=== PATIENT | male | born 1990 | race Caucasian/White ===

== ENCOUNTER 2021-11-10 04:08 | Inpatient (IN) | payer MEDICAID, SELFPAY ==
--- NOTE | ~2021-11-10 | XR_ITS ---
EXAMINATION: XR CHEST CLINICAL INFORMATION: Hypoxia. Overdose. COMPARISON: None TECHNIQUE: Frontal view of the chest was obtained. FINDINGS: The lungs are well expanded. No edema or effusion. Patchy opacity at the left base. No pneumothorax. The cardiomediastinal silhouette is within normal limits. No acute osseous abnormality. XR/XR chest 1V IMPRESSION: Patchy left basilar opacity is nonspecific. This could be atelectasis or pneumonia. Aspiration possible.
--- NOTE | ~2021-11-10 | CT_ITS ---
EXAMINATION: CT CHEST WITHOUT CONTRAST CLINICAL INFORMATION: Hypoxia. Overdose. COMPARISON: Previous chest x-ray from earlier the same day TECHNIQUE: Multidetector volumetric CT imaging of the chest was done. Axial MIP volume rendering provided. Sagittal and coronal reformatted images were obtained. This CT examination was performed using dose optimization techniques as appropriate, variously including the following: *Automated exposure control *Adjustment of mA and/or kV according to patient size (this includes techniques or standardized protocols for targeted exams where dose is matched to indication/reason for exam; i.e. extremities or head) *Use of iterative reconstruction technique DLP: 253 mGy-cm FINDINGS: LUNGS: There is pneumonitis seen in the left upper lobe. There is pneumonitis and denser airspace disease with air bronchograms seen in the left lower lobe. There is patchy groundglass attenuation seen in the right middle lobe. There is atelectasis and groundglass attenuation in the right lower lobe. Given history of overdose, aspiration pneumonia should be considered. The lungs are otherwise clear. No endobronchial or endotracheal lesion is seen. MEDIASTINUM: The mediastinum is normal. PLEURA: There is no pleural effusion. No pleural mass or thickening. AXILLA: No lymphadenopathy. UPPER ABDOMEN: Unremarkable. OSSEOUS STRUCTURES: Unremarkable. CT/CT chest wo con IMPRESSION: Bilateral groundglass attenuation and denser airspace disease or consolidation suggestive of pneumonitis and pneumonia, left greater than right. Given history of overdose, aspiration should be considered. Fleischner guidelines were followed.
[2021-11-10 04:16] VITALS: BP 113/82; PULSE 95; RESP 16; TEMP 37.2; O2SAT 95; BMI 25.8
--- NOTE | 2021-11-10 04:23 | ED_ITS ---
HPI - Overdose General Chief Complaint: Overdose Stated Complaint: OD Time Seen by Provider: 11/10/21 04:23 Source: patient Mode of arrival: ambulatory Limitations: no limitations History of Present Illness HPI Narrative: Recurrent patient never used any substance in the past today had few drinks and how bag of heroin snorted became unconscious for about 15 minutes EMS gave him 6 mg of Narcan became combative initially sleepy but responsive on arrival patient was saturating 95% at room air patient denied use of any other substance Related Data Allergies Allergy/AdvReac Type Severity Reaction Status Date / Time No Known Allergies Allergy Unverified 08/08/20 19:49 [No Known Allergies*] Review of Systems Review of Systems: Yes all other systems are reviewed and are negative [facility] Social History Social History Advance Directives: No Advance Directives Information Provided: No Physical Exam Vital Signs: Vital Signs: Last Vital Signs Temp 98.9 F 11/10/21 04:16 Pulse 85 11/10/21 05:44 Resp 17 11/10/21 05:44 BP 113/82 11/10/21 04:16 Pulse Ox 95 11/10/21 05:44 BMI result Body Mass Index 25.8 Appearance: Alert. Oriented X3. No acute distress. Eyes: PERRLA, ENT: Pharynx normal. Oral Mucosa moist Neck: Normal inspection. Neck supple. CVS: Normal heart rate and rhythm. Pulses normal. Respiratory: No respiratory distress. Equal air entry bilateral, no wheezing/rales/rhonchi Abdomen: Soft and nontender. Skin: Skin warm and dry. Normal skin color. Normal skin turgor. Extremities: No lower extremity edema. No calf tenderness Neuro: Oriented X 3. No motor deficit. MDM - Overdose MDM Narrative Medical decision making narrative: Patient with overdose was given Narcan lungs are clear but patient still saturating 89% at room air after 2 hours of reversal pulse ox increased to 94% when he is awake. Will check chest x-ray and COVID-19 Discharge Plan Discharge Clinical Impression: Drug overdose Qualifiers: Encounter type: initial encounter Injury intent: accidental or unintentional Qualified Code(s): T50.901A - Poisoning by unspecified drugs, medicaments and biological substances, accidental (unintentional), initial encounter Patient Disposition: Home, Self-Care Instructions: Opioid Use Disorder (ED) Additional Instructions: Do not use opiates or other drugs follow with detox if any concerns
[2021-11-10 05:44] VITALS: PULSE 85; RESP 17; O2SAT 95
[2021-11-10 07:38] VITALS: BP 117/76; PULSE 91; RESP 16; TEMP 36.7; O2SAT 98
[2021-11-10 07:56] LABS: COVID-19 Test Negative (Negative); IDNOW Serial# 9DD0AD1C
[2021-11-10 08:26] LABS: MANUAL DIFF FLAG NO
[2021-11-10 08:27] LABS: Basophils Percent Auto 0.1 % (0-2); Eosinophils Percent Auto 0.1 % (0-4); Hematocrit 46.2 % (42.0-52.0); Hemoglobin 15.8 g/dl (14.0-18.0); Imm Gran Abs Auto 0.08 X10*3/uL (0.00-0.03); Imm Gran Pct Auto 0.5 % (0.0-0.4); Lymphocytes Percent Auto 5.9 % (20-40); Mean Corpuscular HGB Conc 34.2 g/dl (31.0-36.0); Mean Corpuscular Hemoglobin 31.3 pg (27.0-33.0); Mean Corpuscular Volume 91.5 fL (80.0-98.0); Mean Platelet Volume 9.3 fL (9.4-12.4); Monocytes Absolute Auto 0.6 X10*3/uL (0.1-1.2); Monocytes Percent Auto 3.7 % (2-11); Neutrophils Absolute Auto 15.2 x10*3/uL (2.0-8.3); Neutrophils Percent Auto 89.7 % (45-73); Platelet Count 208 X10*3/uL (160-400); Red Blood Count 5.05 X10*6/uL (4.60-5.80); Red Cell Distribution Width 12.7 % (11.0-16.0); White Blood Count 16.9 X10*3/uL (4.8-10.8)
[2021-11-10 08:39] LABS: Lactic Acid 1.8 mmol/L (0.5-2.0)
[2021-11-10 08:46] LABS: Anion Gap 15 (12-20); Blood Urea Nitrogen 11 mg/dL (9-16); Calcium 9.2 mg/dL (8.4-10.2); Carbon Dioxide 26 mmol/L (22-29); Chloride 105 mmol/L (96-108); Creatinine Clr Calc Pharmacy 105.2; Estimated Glomerular Filt Rate > 60; Glucose Random 105 mg/dL (60-115); Potassium 4.5 mmol/L (3.3-5.1); Sodium 141 mmol/L (135-145)
[2021-11-10] MEDS: Piperacillin Sodium/Tazobactam 3.375 GM in 0.9 % Sodium Chloride 50 ML IV ×3 (08:51→21:20)
[2021-11-10 10:45] VITALS: BP 119/73; PULSE 96; RESP 18; TEMP 36.7; O2SAT 97
[2021-11-10] MEDS: Enoxaparin Sodium 40 MG/0.4 ML SYRINGE SUBCUT (12:32)
--- NOTE | 2021-11-10 12:48 | P.HPHOSP_ITS ---
History of Present Illness Date of Service: 11/10/21 Chief Complaint: aspiration pneumonia 30-year-old male admitted after what he describes an accidental overdose. States he was snorting cocaine and grabbed the wrong back and ended up snorting heroin. Per EMS down time was about 10 minutes and given 6 of Narcan in the field. Upon arrival to ER sats are stable on 2 L however deteriorated as the morning went on. CT scan of the chest demonstrates bilateral ground-glass attenuation and dense airspace consolidation suggestive of pneumonitis and pneumonia left greater than right. He will be admitted for supplemental O2, IV antibiotics, steroids Review of Systems Review of Systems: denies chest pain Denies shortness of breath Denies nausea vomiting diarrhea PMFSH Social History Advance Directives: No Advance Directives Information Provided: No Meds Allergies Allergy/AdvReac Type Severity Reaction Status Date / Time No Known Allergies Allergy Unverified 08/08/20 19:49 [No Known Allergies*] Active Medications: Current Medications Acetaminophen (Acetaminophen 325 Mg Tablet) 650 mg PO Q6H PRN PRN Reason: Pain, Mild (Pain Scale 1-3) Enoxaparin Sodium (Enoxaparin Sodium 40 Mg/0.4 Ml Syringe) 40 mg SUBCUT Q24H MEÑO Last Admin: 11/10/21 12:32 Dose: 40 mg Documented by: Sodium Chloride (0.9 % Sodium Chloride Flush 3 Ml Syringe) 3 ml IVFLUSH QSHIFT [facility] Physical Exam Vital Signs and Narrative: Vital Signs: Last Vital Signs Temp 98.1 F 11/10/21 10:45 Pulse 96 11/10/21 10:45 Resp 18 11/10/21 10:45 BP 119/73 11/10/21 10:45 Pulse Ox 97 11/10/21 10:45 BMI result Body Mass Index 25.8 Const: Other: resting comfortably in bed. Able to speak in full sentences Resp: Other: scattered crackles bilateral bases; diffuse expiratory wheezes all horn Cardio: Other: no S4; positive S1-S2; no S3 murmurs rubs or gallops GI: Other: soft nontender nondistended with normoactive bowel sounds Neuro: Other: cranial nerves 2-12 grossly intact as tested. Motor is 5/5 all extremities. Sensation intact. Cognition appropriate Extrem: Other: no edema bilaterally Results Labs CBC and Chem 7: 11/10/21 08:22 11/10/21 08:22 Labs: Laboratory Results - last 24 hr 11/10/21 11/10/21 11/10/21 07:37 08:22 08:22 MCV 91.5 MCH 31.3 MCHC 34.2 RDW 12.7 Plt Count 208 MPV 9.3 L Immature Gran % (Auto) 0.5 H Neut % (Auto) 89.7 H Lymph % (Auto) 5.9 L [place] % (Auto) 3.7 Eos % (Auto) 0.1 Baso % (Auto) 0.1 Lymph # (Auto) 1.0 L [place] # (Auto) 0.6 Eos # (Auto) 0.0 Baso # (Auto) 0.0 Abs Immat Gran (auto) 0.08 H Absolute Neuts (auto) 15.2 H Absolute Nucleated RBC 0.000 Nucleated RBC % (auto) 0.0 Anion Gap 15 Estim Creat Clear Calc 105.2 Estimated GFR > 60 Random Glucose 105 Lactic Acid Calcium 9.2 COVID-19 (RADHA) Negative COVID-19 Clin Com See Note 11/10/21 08:22 MCV MCH MCHC RDW Plt Count MPV Immature Gran % (Auto) Neut % (Auto) Lymph % (Auto) [place] % (Auto) Eos % (Auto) Baso % (Auto) Lymph # (Auto) [place] # (Auto) Eos # (Auto) Baso # (Auto) Abs Immat Gran (auto) Absolute Neuts (auto) Absolute Nucleated RBC Nucleated RBC % (auto) Anion Gap Estim Creat Clear Calc Estimated GFR Random Glucose Lactic Acid 1.8 Calcium COVID-19 (RADHA) COVID-19 Clin Com Imaging Radiologist's Impressions: Impressions Chest X-Ray 11/10/21 06:45 IMPRESSION: Patchy left basilar opacity is nonspecific. This could be atelectasis or pneumonia. Aspiration possible. Chest CT 11/10/21 10:13 IMPRESSION: Bilateral groundglass attenuation and denser airspace disease or consolidation suggestive of pneumonitis and pneumonia, left greater than right. Given history of overdose, aspiration should be considered. Fleischner guidelines were followed. Assessment and Plan (1) Aspiration pneumonia: Qualifiers: Aspiration pneumonia type: unspecified Laterality: bilateral Lung location: lower lobe of lung Qualified Code(s): J69.0 - Pneumonitis due to inhalation of food and vomit Status: Acute (2) Drug overdose: Qualifiers: Encounter type: initial encounter Injury intent: accidental or unintentional Qualified Code(s): T50.901A - Poisoning by unspecified drugs, medicaments and biological substances, accidental (unintentional), initial encounter Status: Acute 30-year-old male presents after accidental nasal ingestion of hair whe n. Down time approximately 10 minutes given Narcan in the field. ER workup including CT scan suggestive of diffuse aspiration pneumonia with pneumonitis 1. Aspiration pneumonia ( with pneumonitis) Continue IV Zosyn as ordered; will add pulse dose steroids Titrate O2 as tolerated 2. Substance abuse Care team consult Manjinder Full code Quality Stroke Does the patient have a stroke diagnosis?: No VTE Prior VTE?: No VTE Risk Level:: Medical - moderate - high VTE Device Contraindication: Treatment Not Indicated VTE Drug Contraindication: N/A - Med Ordered
--- NOTE | 2021-11-10 13:45 | HO.SUDE ---
30 year old male admitted for pneumonitis after an accidental overdose. Pt reports using cocaine on the weekends, $20 IN, as well as alcohol (4-5 shots). Pt reports someone had heroin next to the cocaine and pt accidentally did 2 lines. Pt reports this was the first and last time. Pt denies history of CORRIE. Pt identifies as using substances socially and states I don't have any problems. Pt currently lives in [place] with girlfriend and partner's children. Pt declines any recovery supports at this time. Provided t/w contact information if needed.
[2021-11-10] MEDS: methylPREDNISolone Sod Succ 125 MG/2 ML VIAL 60 MG IVPUSH ×2 (14:29→19:59)
--- NOTE | 2021-11-10 15:02 | PC.NURSE ---
Pt A&Ox3, lungs with crackles in the bases, ambulatory independently. No complaints of pain at this time, Medicated as per MAR orders. Call mcmahon within reach, pitcher of water provided, awaiting bed assignment. Will continue to monitor.
[2021-11-10 15:35] VITALS: BP 108/70; PULSE 91; RESP 20; TEMP 36.3; O2SAT 97
--- NOTE | 2021-11-10 18:23 | PC.NURSE ---
Pt ambulatory independently, no complaints of pain at this time, 100% of dinner eaten. Awaiting bed assignment, will continue to monitor.
[2021-11-11] MEDS: 0.9 % Sodium Chloride Flush 3 ML SYRINGE IVFLUSH ×2 (00:45→09:13)
[2021-11-11] MEDS: Acetaminophen 325 MG TABLET 650 MG PO (01:37)
[2021-11-11] MEDS: Melatonin 3 MG TABLET 6 MG PO (01:38)
[2021-11-11] MEDS: methylPREDNISolone Sod Succ 125 MG/2 ML VIAL 60 MG IVPUSH ×2 (01:38→07:53)
[2021-11-11] MEDS: Piperacillin Sodium/Tazobactam 3.375 GM in 0.9 % Sodium Chloride 50 ML IV ×2 (02:49→09:12)
[2021-11-11 07:38] LABS: Basophils Percent Auto 0.1 % (0-2); Hematocrit 42.1 % (42.0-52.0); Hemoglobin 14.8 g/dl (14.0-18.0); Imm Gran Abs Auto 0.13 X10*3/uL (0.00-0.03); Imm Gran Pct Auto 0.8 % (0.0-0.4); Lymphocytes Absolute Auto 1.2 X10*3/uL (1.2-4.9); MANUAL DIFF FLAG SCAN; Mean Corpuscular HGB Conc 35.2 g/dl (31.0-36.0); Mean Corpuscular Volume 91.1 fL (80.0-98.0); Mean Platelet Volume 9.9 fL (9.4-12.4); Monocytes Absolute Auto 0.1 X10*3/uL (0.1-1.2); Monocytes Percent Auto 0.7 % (2-11); Neutrophils Absolute Auto 15.4 x10*3/uL (2.0-8.3); Neutrophils Percent Auto 91.4 % (45-73); Platelet Count 221 X10*3/uL (160-400); Red Blood Count 4.62 X10*6/uL (4.60-5.80); Red Cell Distribution Width 12.7 % (11.0-16.0); SCAN SMEAR FLAG 1; White Blood Count 16.8 X10*3/uL (4.8-10.8)
--- NOTE | 2021-11-11 07:58 | PC.NURSE ---
Pt medicated as per JAN, no complaints of pain at this time, asking for DC status, aware MD will be rounding shortly.
[2021-11-11 08:00] LABS: Anion Gap 13 (12-20); Blood Urea Nitrogen 12 mg/dL (9-16); Calcium 9.6 mg/dL (8.4-10.2); Carbon Dioxide 27 mmol/L (22-29); Chloride 102 mmol/L (96-108); Estimated Glomerular Filt Rate > 60; Glucose Random 148 mg/dL (60-115); Potassium 4.7 mmol/L (3.3-5.1); Sodium 137 mmol/L (135-145)
[2021-11-11 08:10] LABS: SLIDE REVIEW VERIFIED
[2021-11-11 09:14] VITALS: O2SAT 96
--- NOTE | 2021-11-11 09:41 | PC.NURSE ---
Pt A&Ox3, asking when he will be Dc'd, Elizabeth Culp aware of O2 sat on room air, DC teaching with pt regarding necessity for antibiotics, steroids and activity to prevent worsening pneumonia, also discussed drug abuse. IV antibitocs given, awaiting DC orders at this time. Will continue to monitor.
--- NOTE | 2021-11-11 09:56 | PHA.MEDREC ---
Pharmacy Consult ? Medication Reconciliation Pharmacy has completed the medication reconciliation. No remarkable issues. Narcisa He, TiD
[2021-11-11 10:28] VITALS: PULSE 84; O2SAT 94
--- NOTE | 2021-11-11 10:59 | MHC.CM.PN ---
Met with patient in regards to discharge planning. Patient lives with his girlfriend, ambulates independently and had no services prior to coming to the hospital. Patient has no insurance or PCP. Referral made to financial counselor to help assist with [employer] application. No services anticipated to be needed. Patient denies having a HCP. Not interested in completing one at this time. Patient has not received any Covid vaccines. Patient's girlfriend will transport him home when medically stable. Continue to monitor for d/c needs.
--- NOTE | 2021-11-11 11:38 | PM.DS ---
DS: Providers Provider Date of Service: 11/11/21 Date of admission: 11/10/21 11:05 Date of discharge: 11/11/21 Primary care physician: Rubens Physician DS: Diagnosis Discharge Diagnosis (1) Aspiration pneumonia: Status: Acute (2) Drug overdose: Status: Acute DS: Summary Hospital Course Hospital Course: 30-year-old male admitted after what he describes an accidental overdose.? States he was snorting cocaine and grabbed the wrong back and ended up snorting heroin.? Per EMS down time was about 10 minutes and given 6 of Narcan in the field.? Upon arrival to ER sats are stable on 2 L however deteriorated as the morning went on.? CT scan of the chest demonstrates? bilateral ground-glass attenuation and dense airspace consolidation suggestive of pneumonitis and pneumonia left greater than right.? He will be admitted for supplemental O2, IV antibiotics, steroids Hospital Course Responded well to ABTX/steroid. Wishes D/C ...medically stable for same. Time Spent with Patient Time attestation: Total time spent providing and/or coordinating discharge services: Discharge coordination time: Greater than 30 minutes Quality: Stroke Does the patient have a stroke diagnosis?: No Physical Exam Vital Signs: Vital Signs: Last Vital Signs Temp 97.4 F 11/10/21 15:35 Pulse 84 11/11/21 10:28 Resp 20 11/10/21 15:35 BP 108/70 11/10/21 15:35 Pulse Ox 94 11/11/21 10:28 BMI result Body Mass Index 25.8 Const: Other: resting comfortably in bed. Able to speak in full sentences Resp: Other: scattered crackles bilateral bases; diffuse expiratory wheezes all horn Cardio: Other: no S4; positive S1-S2; no S3 murmurs rubs or gallops GI: Other: soft nontender nondistended with normoactive bowel sounds Neuro: Other: cranial nerves 2-12 grossly intact as tested. Motor is 5/5 all extremities. Sensation intact. Cognition appropriate Extrem: Other: no edema bilaterally DS: Data Data Completed and Pending Labs on day of discharge: Laboratory Results - last 24 hr 11/11/21 11/11/21 07:01 07:01 WBC 16.8 H RBC 4.62 Hgb 14.8 Hct 42.1 MCV 91.1 MCH 32.0 MCHC 35.2 RDW 12.7 Plt Count 221 MPV 9.9 Immature Gran % (Auto) 0.8 H Neut % (Auto) 91.4 H Lymph % (Auto) 7.0 L [place] % (Auto) 0.7 L Eos % (Auto) 0.0 Baso % (Auto) 0.1 Lymph # (Auto) 1.2 [place] # (Auto) 0.1 Eos # (Auto) 0.0 Baso # (Auto) 0.0 Abs Immat Gran (auto) 0.13 H Absolute Neuts (auto) 15.4 H Absolute Nucleated RBC 0.000 Nucleated RBC % (auto) 0.0 Smear Tech's Comments VERIFIED Sodium 137 Potassium 4.7 Chloride 102 Carbon Dioxide 27 Anion Gap 13 BUN 12 Creatinine 1.14 Estim Creat Clear Calc 96.0 Estimated GFR > 60 Random Glucose 148 H D Calcium 9.6 Preliminary micro results at discharge 11/10/21 08:22 Blood Culture - Preliminary Blood - Venous No growth after 24 hours. 11/10/21 08:22 Blood Culture - Preliminary Blood - Venous No growth after 24 hours. Discharge Plan Discharge Patient Disposition: Home, Self-Care Discharge Diagnosis: aspiration pneumonia Referrals: Physician,None [Primary Care Provider] - 1 Week Discharge Medications: New amoxicillin-pot clavulanate [Augmentin] 875-125 mg tablet 1 tab PO BID Qty: 20 RF: 0 Discontinued ibuprofen 200 mg Tablet 400 mg PO Q6H PRN (Reason: Headache) RF: 0 Discharge Orders: Discharge Order (Routine); Ordered 11/11/21 Ordered By: Natanael Johnson Diet: advance to usual diet Activity on Discharge: As tolerated Stand Alone Forms: Patient Portal Discharge page Activity Restrictions/Additional Instructions: Do not use opiates or other drugs follow with detox if any concerns Care Plan Goals: complete course of Augmentin Health Concerns: no further nasal opiates Plan of Treatment: as outlined Assessment: as above Patient Instructions: Opioid Use Disorder (ED)
--- NOTE | 2021-11-11 12:07 | MHC.CM.PN ---
pt lives c his mother in her apt. he reports that he is independent in his care. he has no svcs in the home and ambulates s any AD's. pt's mother can help him should he have any needs. he will have a friend provide transportation home at DC. pt denies the need for vna at dc. pt would benefit from a care team consult prior to dc. dc plan is home no svcs. cm to cont. to follow.
== END 2021-11-11 12:05 | disposition home or self-care (01) | DRG 816 ==
LOC: HO.ED 10:52 → HO.EDOVER 11:18
PROVIDERS: Emergency Medicine; Admitting Provider Hospitalist; Emergency Provider Internal Medicine; Visit Provider Hospitalist
DX: T40.1X1A Poisoning by heroin, accidental (unintentional), initial encounter (principal); J69.0 Pneumonitis due to inhalation of food and vomit; Y92.9 Unspecified place or not applicable; Z20.822 Contact with and (suspected) exposure to COVID-19
CPT/HCPCS: 36415; 71045; 71250; 80048; 83605; 85025; 87040; 87635; 96365; 99284; 99285; J1650; J2543; J2930

== ENCOUNTER → 2023-12-16 15:36 | Outpatient (BNVA) | payer SELFPAY | PROVIDERS: Visit Provider Physician Assistant | DX: Z02.1 Encounter for pre-employment examination (principal) ==

== ENCOUNTER 2024-04-01 14:24 | Emergency (ER) | payer OTHER, SELFPAY ==
[2024-04-01 15:01] VITALS: BP 120/66; PULSE 89; RESP 18; TEMP 36.7; O2SAT 97; BMI 26.7
--- NOTE | 2024-04-01 15:04 | ED.EYEPROB ---
HPI - Eye Problem General Chief complaint: Eye Problems Stated complaint: pink eye Time Seen by Provider: 04/01/24 15:02 Source: patient and family Mode of arrival: ambulatory Limitations: no limitations History of Present Illness HPI Narrative: 33-year-old male no significant past history presents to the emergency department, family, for concerns for bilateral eye pain and discharge in addition to nasal congestion. He reports a difficulty opening his eyes earlier this morning as they were crusted shut. He also reports nasal congestion but denies fevers, chills, shortness of breath Pertinent positives and negatives discussed in the HPI Related Data Previous Rx's ?Medication ?Instructions ?Recorded amoxicillin 875 mg-potassium 1 tab PO BID #20 tabs 11/11/21 clavulanate 125 mg tablet (Augmentin) erythromycin 5 mg/gram (0.5 %) eye 1 appl ophthalmic (eye) DAILY #3.5 04/01/24 ointment grams polymyxin B sulfate 10,000 1 drp ophthalmic (eye) 6XD 5 days 04/01/24 unit-trimethoprim 1 mg/mL eye drops #10 mL Allergies Allergy/AdvReac Type Severity Reaction Status Date / Time No Known Allergies Allergy Verified 04/01/24 15:01 [No Known Allergies*] Review of Systems Review of Systems: Yes all other systems are reviewed and are negative [facility] Social History Social History Do you have a plan to hurt others: No Plan service: No Current occupational status: unemployed Physical Exam Vital Signs: Vital Signs: Last Vital Signs Temp 98.0 F 04/01/24 15:01 Pulse 89 04/01/24 15:01 Resp 18 04/01/24 15:01 BP 120/66 04/01/24 15:01 Pulse Ox 97 04/01/24 15:01 O2 Del Method Room Air 04/01/24 15:01 BMI result Body Mass Index 26.7 Nursing notes and vital signs reviewed. GENERAL APPEARANCE: A&0 x 4, generally well appearing, no acute distress HENMT: Normal to inspection, atraumatic, face symmetrical. Normal external ears, nose, and oropharynx clear. EYE: PERRLA, EOM intact, bilat eyes injected NECK: Supple without stiffness or restricted ROM. HEART: Normal rate and regular rhythm, normal S1/S2, no M/R/G LUNGS: LS CTA, moving air well. Able to speak in complete sentences. No crackles, wheezes, or rhonchi auscultated BACK: No CVAT, no obvious deformity EXTREMITIES: Moving all extremities without difficulty. Normal capillary refill. NEUROLOGICAL: Alert and oriented, moving all 4 extremities with equal strength. CN not formally tested but appearing grossly intact. Observed to ambulate with normal gait. Cognition normal SKIN: Warm and dry without any lesions, rash, or visible sores Medical Decision Making Medical Decision Making MDM Narrative: Old records reviewed for previous imaging, lab studies, ECGs, and notes with additional HPI obtained from patient's partner. Patient was assessed the emergency department with no acute distress or toxicity noted. Bilateral eyes injected with evidence bacterial conjunctivitis and antibiotic eyedrops and ointment prescribed to patient's preferred pharmacy. Patient educated to use the ointment prior to going to bed and use the eye drops throughout the day. Patient educated to apply warm compresses for comfort. Nasal serology offered to test for COVID, flu, and RSV and declined. Patient is safe for discharge at this time with plan for [id number] Tylenol and/or NSAID such as ibuprofen or naproxen for fever/discomfort with dosing as per packaging. HPI, PE, diagnostics, and plan discussed with patient and family with no unanswered questions at this time. Strict return precautions given to return to the emergency department with new, worsening, or concerning emergent symptoms. Recommended to follow-up with there primary care provider in 24-48 hours for further treatment and management. Differential Diagnosis Differential Diagnoses: The differential diagnosis associated with the presentation includes But not limited to viral syndrome, allergic/viral/bacterial conjunctivitis, upper respiratory infection, pneumonia, sepsis Independent Historian Clinical information obtained from an independent historian. History obtained from or confirmed by: Spouse Discharge Plan Discharge Clinical Impression: Conjunctivitis Patient Disposition: Home, Self-Care Instructions: Conjunctivitis (ED) Prescriptions: New erythromycin 5 mg/gram (0.5 %) ointment 1 appl ophthalmic (eye) DAILY Qty: 3.5 0RF Rx Instructions: At bedtime for 7 days polymyxin B sulf-trimethoprim 10,000 unit- 1 mg/mL drops 1 drp ophthalmic (eye) 6XD 5 Days Qty: 10 0RF Rx Instructions: ON drop in each eye, every three hours, while awake for the next 7 days No Action amoxicillin-pot clavulanate [Augmentin] 875-125 mg tablet 1 tab PO BID Qty: 20 0RF Referrals: [facility] [place] [facility] [place]Provider Group] [facility] [place] [place] [facility] [Provider Group] [facility] [place] Primary [facility] [Provider Group] Print Language: Romanian
[2024-04-01 15:16] VITALS: BP 120/60; PULSE 89; RESP 18; TEMP 36.7; O2SAT 97
== END 2024-04-01 15:16 | disposition home or self-care (01) ==
PROVIDERS: Emergency Provider Student in an Organized Health Care Education/Training Program
DX: H10.9 Unspecified conjunctivitis (principal); H57.13 Ocular pain, bilateral; R09.81 Nasal congestion
CPT/HCPCS: 99282; 99283